=== PATIENT | male | born 2000 | race Caucasian/White ===

== ENCOUNTER 2020-06-09 23:08 | Emergency (ER) | payer OTHER ==
[~2020-06-09] VITALS: Ht 177.8 cm; Wt 74.2 kg
[2020-06-09] MEDS ORDERED: LEXA1TAB PO (23:15)
[2020-06-09] MEDS ORDERED: BUSP10TA PO (23:15)
--- NOTE | 2020-06-09 23:46 | REPVR ---
PROCEDURE INFORMATION: Exam: XR Left Foot Complete Exam date and time: 06/09/2020 11:37 PM Age: 20 years old Clinical indication: Injury or trauma; Other: Tripped over fan; Blunt trauma; Foot; Left; Additional info: Tripped over a fan TECHNIQUE: Imaging protocol: XR Left foot. Views: 3 or more views. COMPARISON: No relevant prior studies available. FINDINGS: Bones/joints: Normal. Soft tissues: Normal. IMPRESSION: No acute osseous abnormality. Electronically signed by: Huan Hicks On 06/09/2020 23:46:23 PM
[2020-06-10] MEDS ORDERED: BOOSTRIX/ADACEL VACCINE (DIPHTH/PERTUSS/ACELL/TETANUS) 0.5ML SYR IM ONE (00:15)
[2020-06-10 00:31] VITALS: BP 117/62
== END 2020-06-10 00:37 | disposition home or self-care (01) ==
LOC: M ED 23:08
DX: S90.812A Abrasion, left foot, initial encounter (principal); M79.89 Other specified soft tissue disorders; W01.198A Fall on same level from slipping, tripping and stumbling with subsequent striking against other object, initial encounter; Y92.098 Other place in other non-institutional residence as the place of occurrence of the external cause; Y93.89 Activity, other specified; Y99.8 Other external cause status; F41.9 Anxiety disorder, unspecified; F32.9 Major depressive disorder, single episode, unspecified; Z79.899 Other long term (current) drug therapy